=== PATIENT | female | born 1990 | race American Indian/Alaskan Native ===

== ENCOUNTER 2020-03-05 19:23 | Emergency (ER) | payer OTHER ==
--- NOTE | 2020-03-05 20:59 | Emergency Department Report ---
ED General Adult HPI - General Chief complaint: Abdominal Pain Stated complaint: CONSTIPATION, RECTAL PAIN Time Seen by Provider: 03/05/20 20:36 Source: patient Mode of arrival: Ambulatory Limitations: No Limitations - History of Present Illness Initial comments: 29-year-old female presents to ED with complaint of constipation and rectal pain. Patient states she underwent a myomectomy 4 days ago. States she received Percocet for pain. Patient states she was able to have a bowel movement today, however it was painful. States it feels like something is getting in the way of her stool. Patient states she was seen at [facility] and given a prescription for lactulose, however, patient came to ED after leaving the urgent care and has yet to use the lactulose. She is unsure if she may have a hemorrhoid. Patient reports she has been taking ibuprofen for pain since she has been home. Last bowel movement before today was 4 days ago. -: days(s) (1) Quality: sharp Consistency: intermittent Improves with: none Worsens with: other (Bowel movement) Associated Symptoms: denies other symptoms Treatments Prior to Arrival: none - Related Data Previous Rx's Medication Instructions Recorded Last Taken Type Hydrocortisone [Anucort-HC SUPPOS] 25 mg RC BID #30 supp.rect 03/05/20 Unknown Rx Allergies Allergy/AdvReac Type Severity Reaction Status Date / Time No Known Allergies Allergy Unverified 03/05/20 19:57 ED Review of Systems ROS: Stated complaint: CONSTIPATION, RECTAL PAIN Other details as noted in HPI Comment: All other systems reviewed and negative Gastrointestinal: other (Reports constipation and rectal pain). denies: nausea, vomiting ED Past Medical Hx - Past Medical History Additional medical history: Uterine fibriods - Surgical History Additional Surgical History: Myomectomy - Social History Smoking Status: Never Smoker Substance Use Type: Alcohol - Medications Home Medications: Home Medications Medication Instructions Recorded Confirmed Last Taken Type Hydrocortisone [Anucort-HC SUPPOS] 25 mg RC BID #30 supp.rect 03/05/20 Unknown Rx ED Physical Exam - General Limitations: No Limitations General appearance: alert, in no apparent distress - Head Head exam: Present: atraumatic, normocephalic - Eye Eye exam: Present: normal appearance - ENT ENT exam: Present: mucous membranes moist - Neck Neck exam: Present: normal inspection - Respiratory Respiratory exam: Present: normal lung sounds bilaterally. Absent: respiratory distress - Cardiovascular Cardiovascular Exam: Present: regular rate, normal rhythm - Rectal Rectal exam: Present: other (possible internal hemorrhoid palpated; stool is soft; unable to disimpact, did not tolerate further ) - Extremities Exam Extremities exam: Present: normal inspection - Neurological Exam Neurological exam: Present: alert, oriented X3 - Psychiatric Psychiatric exam: Present: normal affect, normal mood - Skin Skin exam: Present: warm, dry, intact, normal color ED Course Vital Signs 03/05/20 03/05/20 19:58 21:16 Temperature 98.6 F Pulse Rate 86 87 Respiratory 17 17 Rate Blood Pressure 149/84 O2 Sat by Pulse 98 100 Oximetry ED Medical Decision Making - Medical Decision Making 29-year-old female presents to ED with complaint of constipation and rectal pain. Patient reports bowel movement today, before that was 3 days ago. Patient reports some associated pain with her stool today. Rectal exam was performed and possible internal hemorrhoid palpated. Stool was soft, however patient was unable to tolerate an actual disimpaction. Patient currently has a prescription for lactulose and I advised her to get that filled. We will add prescription for Anusol suppositories to treat the possible hemorrhoid. Outpatient follow-up advised. Return precautions given. - Differential Diagnosis Hemorrhagic, constipation Critical care attestation.: If time is entered above; I have spent that time in minutes in the direct care of this critically ill patient, excluding procedure time. ED Disposition Clinical Impression: Rectal pain Disposition: TO HOME OR SELFCARE Is pt being admited?: No Condition: Stable Instructions: Constipation (ED), Hemorrhoids (ED), High Fiber Diet (ED) Prescriptions: Hydrocortisone [Anucort-HC SUPPOS] 25 mg RC BID #30 supp.rect Referrals: PRIMARY CARE, [Primary Care Provider] - 3-5 Days Time of Disposition: 21:03
[2020-03-05 21:01] VITALS: BP 149/84
== END 2020-03-05 21:16 | disposition home or self-care (01) ==
LOC: ED 19:23
DX: K62.89 Other specified diseases of anus and rectum (principal); Z79.899 Other long term (current) drug therapy; Z98.890 Other specified postprocedural states
CPT/HCPCS: 99282